=== PATIENT | female | born 1950 | race Caucasian/White ===

== ENCOUNTER 2024-07-12 19:37 | Emergency (ER) | payer OTHER ==
[~2024-07-12] VITALS: Ht 154.9 cm; Wt 77.1 kg
[2024-07-12] MEDS ORDERED: HYDROXYZINE HCL25 MG PO (19:58)
[2024-07-12 20:27] VITALS: PULSE 66; RESP 18; TEMP 98.3
[2024-07-12 20:29] VITALS: BP 151/86; PULSE 66; RESP 18; TEMP 98.3; O2SAT 99
[2024-07-12] MEDS ORDERED: HYDROXYZINE HCL 25 MG TAB PO SCH (21:00)
== END 2024-07-12 20:32 | disposition home or self-care (01) ==
LOC: FSED 19:42
DX: S00.06XA Insect bite (nonvenomous) of scalp, initial encounter (principal); I10 Essential (primary) hypertension; M10.9 Gout, unspecified; E66.9 Obesity, unspecified
CPT/HCPCS: 99282